=== PATIENT | female | born 1995 | race Caucasian/White ===

== ENCOUNTER → 2021-11-21 16:00 | Outpatient (CLI) | payer BC, SELFPAY ==
[2021-11-21 19:01] LABS: Basophils # 0.2 K/mm3 (0-0.2); Eosinophils # 0.3 K/mm3 (0.0-0.4); Hematocrit 41.4 % (37.0-47.0); Hemoglobin 14.1 g/dL (12.2-16.2); Lymphocytes # 2.3 K/mm3 (0.7-4.5); Lymphocytes % 25.6 % (10-50); Mean Corpuscular HGB Conc 34.1 g/dL (31.8-35.4); Mean Corpuscular Hemoglobin 29.6 pg (27.0-31.2); Mean Corpuscular Volume 86.9 fl (81-99); Mean Platelet Volume 8.7 fl (7.4-10.4); Monocytes # 0.6 K/mm3 (0.1-1.0); Monocytes % 6.7 % (1.7-9.3); Neutrophils # 5.5 K/mm3 (1.8-7.8); Neutrophils % 62.8 % (37.0-80.0); Platelet Count 336 K/mm3 (142-424); Red Blood Count 4.76 M/mm3 (4.20-5.40); Red Cell Distribution Width 13.1 % (11.5-17.5); White Blood Count 8.8 K/mm3 (4.8-10.8)
[2021-11-21 19:08] LABS: Alanine Aminotransferase 26 U/L (12-78); Albumin Level 4.5 g/dl (3.5-5.0); Albumin/Globulin Ratio 1.6 (1.1-1.8); Alkaline Phosphatase 84 U/L (38-126); Anion Gap 12.1 mEq/L (5-15); Aspartate Amino Transferase 30 U/L (14-36); Bilirubin,Total 0.9 mg/dl (0.2-1.3); Blood Urea Nitrogen 11 mg/dl (7-17); Calcium 9.4 mg/dl (8.4-10.2); Carbon Dioxide 25 mmol/L (22.0-30.0); Chloride 104 mmol/L (98-107); Cholesterol 173 mg/dl (140-200); Estimated Glomerular Filt Rate 101 ml/min (>60); GFR (African American) 122 ML/MIN (>60); Globulin 2.8 g/dL (1.3-3.2); Glucose 95 mg/dl (74-100); HDL Cholesterol 58 mg/dl (40-60); Potassium 4.1 mmoL/L (3.5-5.1); Sodium 137 mmol/L (136-145); Total Protein,Serum 7.3 g/dl (6.3-8.2); Triglycerides 66 mg/dl (30-150); VLDL Cholesterol 13 mg/dL (0-40)
[2021-11-21 19:19] LABS: Direct LDL Cholesterol 81.01 mg/dL (100-129)
[2021-11-21 19:24] LABS: 25-OH Vitamin D, Total 27.9 ng/mL (30-100)
[2021-11-21 19:39] LABS: Thyroid Stimulating Hormone 5.66 uIU/mL (0.465-4.68)
== END ==
PROVIDERS: Visit Provider Physician Assistant
DX: Z76.89 Persons encountering health services in other specified circumstances (principal); E55.9 Vitamin D deficiency, unspecified; R94.6 Abnormal results of thyroid function studies
CPT/HCPCS: 80053; 80061; 82306; 84443; 85025

== ENCOUNTER → 2022-08-16 13:30 | Outpatient (CLI) | payer BC, SELFPAY ==
[2022-08-16 19:03] LABS: Basophils # 0.1 K/mm3 (0-0.2); Basophils % 0.8 % (0.1-2.0); Eosinophils # 0.3 K/mm3 (0.0-0.4); Eosinophils % 4.1 % (0.1-12.0); Hematocrit 43.4 % (37.0-47.0); Hemoglobin 14.2 g/dL (12.2-16.2); Lymphocytes # 1.8 K/mm3 (0.7-4.5); Lymphocytes % 24.5 % (10-50); Mean Corpuscular HGB Conc 32.8 g/dL (31.8-35.4); Mean Corpuscular Hemoglobin 28.3 pg (27.0-31.2); Mean Corpuscular Volume 86.3 fl (81-99); Mean Platelet Volume 8.2 fl (7.4-10.4); Monocytes # 0.4 K/mm3 (0.1-1.0); Monocytes % 5.4 % (1.7-9.3); Neutrophils # 4.8 K/mm3 (1.8-7.8); Neutrophils % 65.2 % (37.0-80.0); Platelet Count 344 K/mm3 (142-424); Red Blood Count 5.03 M/mm3 (4.20-5.40); Red Cell Distribution Width 13.3 % (11.5-17.5); White Blood Count 7.3 K/mm3 (4.8-10.8)
[2022-08-16 19:17] LABS: Alanine Aminotransferase 31 U/L (12-78); Albumin Level 4.6 g/dl (3.5-5.0); Albumin/Globulin Ratio 1.6 (1.1-1.8); Alkaline Phosphatase 74 U/L (38-126); Anion Gap 11.1 mEq/L (5-15); Aspartate Amino Transferase 29 U/L (14-36); Bilirubin,Total 1.1 mg/dl (0.2-1.3); Blood Urea Nitrogen 11 mg/dl (7-17); Calcium 8.9 mg/dl (8.4-10.2); Carbon Dioxide 23 mmol/L (22.0-30.0); Chloride 106 mmol/L (98-107); Chol/HDL Ratio 3.4 (1-3.5); Cholesterol 184 mg/dl (140-200); Estimated Glomerular Filt Rate 100 ml/min (>60); GFR (African American) 121 ML/MIN (>60); Globulin 2.9 g/dL (1.3-3.2); Glucose 82 mg/dl (74-100); HDL Cholesterol 54 mg/dl (40-60); Potassium 4.1 mmoL/L (3.5-5.1); Sodium 136 mmol/L (136-145); Total Protein,Serum 7.5 g/dl (6.3-8.2); Triglycerides 110 mg/dl (30-150); VLDL Cholesterol 22 mg/dL (0-40)
[2022-08-16 19:28] LABS: Direct LDL Cholesterol 95.29 mg/dL (100-129)
[2022-08-16 19:35] LABS: 25-OH Vitamin D, Total 13.4 ng/mL (30-100)
[2022-08-16 19:50] LABS: Thyroid Stimulating Hormone 4.05 uIU/mL (0.465-4.68)
[2022-08-16 20:09] LABS: Vitamin B12 385 pg/mL (239-931)
== END ==
PROVIDERS: PCP Physician Assistant; Visit Provider Physician Assistant
DX: E03.9 Hypothyroidism, unspecified (principal); E55.9 Vitamin D deficiency, unspecified
CPT/HCPCS: 80053; 80061; 82306; 82607; 84443; 85025

== ENCOUNTER → 2023-02-14 23:45 | Outpatient (CLI) | payer BC, SELFPAY ==
[2023-02-14 18:05] LABS: Basophils % 0.4 % (0.1-2.0); Eosinophils # 0.2 K/mm3 (0.0-0.4); Eosinophils % 2.1 % (0.1-12.0); Hematocrit 41.4 % (37.0-47.0); Hemoglobin 13.6 g/dL (12.2-16.2); Lymphocytes % 21.1 % (10-50); Mean Corpuscular HGB Conc 32.8 g/dL (31.8-35.4); Mean Corpuscular Volume 82.2 fl (81-99); Mean Platelet Volume 8.7 fl (7.4-10.4); Monocytes # 0.5 K/mm3 (0.1-1.0); Monocytes % 5.4 % (1.7-9.3); Neutrophils # 6.9 K/mm3 (1.8-7.8); Neutrophils % 70.9 % (37.0-80.0); Platelet Count 392 K/mm3 (142-424); Red Blood Count 5.04 M/mm3 (4.20-5.40); Red Cell Distribution Width 13.7 % (11.5-17.5); White Blood Count 9.7 K/mm3 (4.8-10.8)
[2023-02-14 18:11] LABS: Alanine Aminotransferase 43 U/L (12-78); Albumin/Globulin Ratio 1.7 (1.1-1.8); Alkaline Phosphatase 108 U/L (38-126); Aspartate Amino Transferase 32 U/L (14-36); Bilirubin,Total 0.8 mg/dl (0.2-1.3); Blood Urea Nitrogen 10 mg/dl (7-17); Calcium 9.5 mg/dl (8.4-10.2); Carbon Dioxide 24 mmol/L (22.0-30.0); Chloride 105 mmol/L (98-107); Chol/HDL Ratio 4.9 (1-3.5); Cholesterol 214 mg/dl (140-200); Estimated Glomerular Filt Rate 100 ml/min (>60); GFR (African American) 121 ML/MIN (>60); Globulin 2.9 g/dL (1.3-3.2); Glucose 98 mg/dl (74-100); HDL Cholesterol 44 mg/dl (40-60); Sodium 140 mmol/L (136-145); Total Protein,Serum 7.9 g/dl (6.3-8.2); Triglycerides 125 mg/dl (30-150); VLDL Cholesterol 25 mg/dL (0-40)
[2023-02-14 18:22] LABS: Direct LDL Cholesterol 120.03 mg/dL (100-129)
[2023-02-14 18:28] LABS: 25-OH Vitamin D, Total 25.7 ng/mL (30-100); Free Thyroxine Index 3.9 ug/dL (5.93-13.13); T4 (Thyroxine) 11.9 ug/dl (5.53-11.0); Triiodothryronine (T3) Uptake 33 % (23.5-40.5)
[2023-02-14 18:36] LABS: Erythrocyte Sedimentation Rate 17 mm/hr (0-20)
[2023-02-14 18:41] LABS: Thyroid Stimulating Hormone 2.08 uIU/mL (0.465-4.68)
[2023-02-16 08:19] LABS: Thyroid Peroxidase Antibodies 11 IU/mL (0-34)
[2023-02-16 14:12] LABS: Deamidated Gliadin Abs, IgA 6 units (0-19); Deamidated Gliadin Abs, IgG 3 units (0-19); Tissue Transglutaminase IgA Ab <2 U/mL (0-3); Tissue Transglutaminase IgG Ab 4 U/mL (0-5)
[2023-02-17 10:12] LABS: Thyroid Stimulating Immunoglob <0.10 IU/L (0.00-0.55)
[2023-02-18 15:09] LABS: Endomysial IgA Antibody Negative (Negative)
[2023-02-19 23:08] LABS: F001-IgE Egg White <0.10 kU/L (Class 0); F002-IgE Milk <0.10 kU/L (Class 0); F003-IgE Codfish <0.10 kU/L (Class 0); F004-IgE Wheat <0.10 kU/L (Class 0); F010-IgE Sesame Seed <0.10 kU/L (Class 0); F013-IgE Peanut <0.10 kU/L (Class 0); F014-IgE Soybean <0.10 kU/L (Class 0); F024-IgE Shrimp <0.10 kU/L (Class 0); F256-IgE Walnut <0.10 kU/L (Class 0); F338-IgE Scallop <0.10 kU/L (Class 0)
[2023-02-21 09:19] LABS: Reticulin IgA Antibody Negative titer (Neg:<1:2.5)
== END ==
PROVIDERS: PCP Physician Assistant; Visit Provider Physician Assistant
DX: E03.9 Hypothyroidism, unspecified (principal); R13.10 Dysphagia, unspecified
CPT/HCPCS: 80053; 80061; 82306; 83516; 84436; 84443; 84445; 84479; 85025; 85651; 86003; 86008; 86140; 86255; 86256; 86376

== ENCOUNTER → 2023-03-08 15:13 | Outpatient (CLI) | payer BC, SELFPAY ==
--- NOTE | 2023-03-08 15:23 | US_ITS ---
FINAL REPORT TECHNIQUE: Limited sonographic images of the thyroid were obtained. CLINICAL HISTORY: [employer] FINDINGS: The right lobe of the thyroid measures 5.5 x 1.8 x 1.8 cm. The left lobe of the thyroid measures 5.3 x 1.5 x 1.8 cm. The isthmus measures 0.34 cm. There are 2 nodules bilaterally that are mixed cystic and solid consistent with TI-RADS category 3. IMPRESSION: Bilateral thyroid nodules consistent with TI-RADS category 3. No follow-up is required. Reviewed, Interpreted and Dictated by Luis Perez MD Transcribed by Jessi Spangler Authenticated and [facility]
== END ==
PROVIDERS: PCP Physician Assistant; Visit Provider Physician Assistant
DX: E06.3 Autoimmune thyroiditis (principal); Z86.39 Personal history of other endocrine, nutritional and metabolic disease
CPT/HCPCS: 76536

== ENCOUNTER → 2023-04-17 08:04 | Outpatient (CLI) | payer BC, SELFPAY ==
--- NOTE | 2023-04-17 08:04 | FL_ITS ---
FINAL REPORT CLINICAL HISTORY: dysphagia ft- 1:47 DAP-4789.91 FINDINGS: UPPER GI WITH SBFT UPPER GI EXAM HISTORY: Abdominal pain, nausea. PROCEDURE: The patient ingested barium. Effervescent crystals were also administered. Spot and overhead films were obtained. FINDINGS: The esophagus is normal. There is a small, sliding-type hiatal hernia. There is mild gastroesophageal reflux. Peristalsis is normal. The rugal fold pattern of the stomach is normal. The duodenal bulb is normal. There are prominent duodenal folds suggestive of duodenitis. Fluoroscopy time: 1 minute 47 seconds Radiation exposure DAP: 4789.91 IMPRESSION: Normal upper GI. SBFT: The wheel aligner film is normal. There is no evidence of obstruction. The mucosal fold pattern is normal. The terminal ilium is normal. IMPRESSION: 1. Small sliding type hiatal hernia with mild gastroesophageal reflux. 2. Prominent duodenal folds suggestive of duodenitis. 3. No evidence of bowel obstruction. Films reviewed , interpreted and dictated by Dr. Still Transcribed by Chip Jasso PA-C. Reviewed, Interpreted and Dictated by Enmanuel Still III, MD Transcribed by DERRICK Stein Authenticated and [facility]
== END ==
LOC: RAD 08:04
PROVIDERS: PCP Physician Assistant; Visit Provider Surgery
DX: R13.10 Dysphagia, unspecified (principal)
CPT/HCPCS: 74246; 74248

== ENCOUNTER → 2023-05-13 08:44 | Outpatient (CLI) | payer BC, SELFPAY ==
[2023-05-13 21:12] LABS: Chloride 105 mmol/L (98-107); Sodium 138 mmol/L (136-145)
[2023-05-13 21:14] LABS: Blood Urea Nitrogen 9 mg/dl (7-17)
[2023-05-13 21:15] LABS: Alanine Aminotransferase 35 U/L (12-78); Albumin Level 4.4 g/dl (3.5-5.0); Albumin/Globulin Ratio 1.6 (1.1-1.8); Alkaline Phosphatase 87 U/L (38-126); Aspartate Amino Transferase 31 U/L (14-36); Bilirubin,Total 0.5 mg/dl (0.2-1.3); Calcium 8.8 mg/dl (8.4-10.2); Carbon Dioxide 25 mmol/L (22.0-30.0); Cholesterol 176 mg/dl (140-200); Estimated Glomerular Filt Rate 100 ml/min (>60); GFR (African American) 121 ML/MIN (>60); Globulin 2.8 g/dL (1.3-3.2); Glucose 99 mg/dl (74-100); Iron 37 ug/dL (37-170); Total Protein,Serum 7.2 g/dl (6.3-8.2); Triglycerides 88 mg/dl (30-150); VLDL Cholesterol 18 mg/dL (0-40)
[2023-05-13 21:16] LABS: Chol/HDL Ratio 3.8 (1-3.5); HDL Cholesterol 46 mg/dl (40-60)
[2023-05-13 21:25] LABS: Total Iron Binding Capacity 346 ug/dL (265-497)
[2023-05-13 21:30] LABS: 25-OH Vitamin D, Total 28.6 ng/mL (30-100)
[2023-05-13 21:32] LABS: Direct LDL Cholesterol 102.39 mg/dL (100-129)
[2023-05-13 21:37] LABS: Basophils # 0.1 K/mm3 (0-0.2); Basophils % 0.6 % (0.1-2.0); Eosinophils # 0.4 K/mm3 (0.0-0.4); Eosinophils % 4.6 % (0.1-12.0); Hematocrit 42.3 % (37.0-47.0); Hemoglobin 14.6 g/dL (12.2-16.2); Lymphocytes # 2.9 K/mm3 (0.7-4.5); Mean Corpuscular HGB Conc 34.5 g/dL (31.8-35.4); Mean Corpuscular Hemoglobin 29.9 pg (27.0-31.2); Mean Corpuscular Volume 86.7 fl (81-99); Mean Platelet Volume 9.7 fl (7.4-10.4); Monocytes # 0.6 K/mm3 (0.1-1.0); Monocytes % 6.3 % (1.7-9.3); Neutrophils # 5.1 K/mm3 (1.8-7.8); Neutrophils % 56.4 % (37.0-80.0); Platelet Count 339 K/mm3 (142-424); Red Blood Count 4.87 M/mm3 (4.20-5.40); Red Cell Distribution Width 13.3 % (11.5-17.5)
[2023-05-13 21:38] LABS: Free Thyroxine Index 3.5 ug/dL (5.93-13.13); T4 (Thyroxine) 10.2 ug/dl (5.53-11.0); Triiodothryronine (T3) Uptake 34 % (23.5-40.5)
[2023-05-13 21:51] LABS: Thyroid Stimulating Hormone 2.83 uIU/mL (0.465-4.68)
[2023-05-13 22:07] LABS: Vitamin B12 366 pg/mL (239-931)
[2023-05-15 11:04] LABS: Progesterone 4.3 ng/mL (.); Testosterone,Total 14 ng/dL (13-71)
[2023-05-18 00:09] LABS: Estrogen 169 pg/mL (.)
[2023-05-19 12:28] LABS: Anti Mullerian Hormone (AMH) 2.51
== END ==
PROVIDERS: PCP Physician Assistant; Visit Provider Physician Assistant
DX: E03.9 Hypothyroidism, unspecified (principal); L73.2 Hidradenitis suppurativa; R53.83 Other fatigue; K58.2 Mixed irritable bowel syndrome; E55.9 Vitamin D deficiency, unspecified; E61.1 Iron deficiency
CPT/HCPCS: 80053; 80061; 82306; 82397; 82607; 82672; 83540; 83550; 84144; 84403; 84436; 84443; 84479; 85025

== ENCOUNTER 2023-06-14 13:29 | Day surgery (SDC) | payer BC, SELFPAY ==
[2023-06-14 13:37] VITALS: BMI 43.5
[2023-06-14 13:49] VITALS: BP 176/73; PULSE 78; RESP 18; TEMP 36.9; O2SAT 99
[2023-06-14 13:52] LABS: Urine Pregnancy, HCG Qual. Negative (Negative)
--- NOTE | 2023-06-14 14:31 | HMH.SCOPE ---
Procedure: Date: 06/14/23 Patient Date of :: 1995 Procedure Performed:: Esophagogastroduodenoscopy with biopsies Indications:: Patient is a 28-year-old female with history of anxiety, depression, irritable bowel syndrome referred by Iram Jo for upper endoscopy. Patient states that in September of this year she had the sensation that she had a lump in her throat somewhat to the left side. She does have symptoms of dysphagia. She was eating and when she swallowed she felt like something was stuck in her throat which persisted for 24 hours before she was seen and evaluated in the emergency department in [place] Apparently recommendations were for possible endoscopy as an outpatient. She does describe symptoms of acid reflux, indigestion, belching and burping. She has been diagnosed with apparently Leah's thyroiditis. She has some dysphagia type symptoms for seems to be worse with crunchy hard food. She did have a thyroid ultrasound performed. I felt it may be reasonable to proceed with upper endoscopy with biopsies and possible dilatation. I did however explain to her that if she has any issue in the cervical esophagus or pharynx that this may require evaluation with ENT. I ordered an upper GI series prior to her scheduled upper endoscopy. This revealed findings of normal upper GI. However, impression revealed a small sliding-type hiatal hernia with mild GERD and prominent duodenal folds suggestive of duodenitis. Performing Provider:: Enmanuel Baker MD Referring Provider:: Iram Jo Sedation:: MAC sedation Procedure:: Patient history was obtained and appropriate physical examination was performed. Patient's medications and allergies were reviewed. Informed consent was obtained after explaining the benefits, alternatives, and risks of the procedure including, but not limited to, bleeding, perforation, missed lesions, and adverse reaction to anesthesia medications. Patient was transported to endoscopy procedure room. Patient was connected to monitoring devices. Throughout the procedure the patient's blood pressure, pulse, and oxygen saturations were monitored continuously. Patient identification and planned procedure were verified by the staff. Patient was positioned in lateral decubitus position. Olympus endoscope was inserted via the oropharynx. Esophagus was cannulated. There appeared to be some minor narrowing and cricopharyngeal spasm at about 15 cm. Esophagus was traversed and the gastroesophageal junction was encountered. Stomach was cannulated and insufflated. Retroflexion revealed tiny hiatal hernia. There is some diffuse nonerosive gastropathy. There was a single probable fundic gland polyp. Pylorus was traversed. Duodenal bulb and duodenal sweep appeared relatively unremarkable. However given the findings on upper GI several biopsies were obtained within the duodenal bulb. Gastric biopsies obtained for H. pylori assessment. Several biopsies were obtained at the gastroesophageal junction. Distal esophageal biopsies were obtained. There was noted to be some apparent intermittent spasms of the distal esophagus. There was no stricture however which would be amenable to dilatation. Findings:: Probable cricopharyngeal spasm Distal esophageal spasm Tiny hiatal hernia Mild diffuse nonerosive gastropathy Probable gastric fundic gland polyp Recommendations:: Continue pantoprazole for now. Tailor medical therapy based on biopsies. If she has continued symptoms of cervical dysphagia may need ENT assessment of this. Complications:: None immediately apparent Estimated blood obtained (mL): 2 Colonoscopy Component Colonoscopy Component Was a colonoscopy performed during today's procedure?: No
[2023-06-14 14:48] VITALS: O2SAT 100
[2023-06-14 15:04] VITALS: BP 123/62; PULSE 83; RESP 16; TEMP 36.6; O2SAT 97
[2023-06-14 15:14] VITALS: BP 128/65; PULSE 81; RESP 16; O2SAT 97
[2023-06-14 15:24] VITALS: BP 141/70; PULSE 86; RESP 16; O2SAT 98
--- NOTE | 2023-06-14 15:26 | EXP.ANES.CKL ---
[facility] Disclaimer: The information contained in this section may have been updated after the patient was seen, as this information can be updated by other users. Medical History (Updated 06/14/23 @ 13:46 by Kuldip Wakefield RN) Anxiety Body mass index (BMI) of 40.1 to 44.9 in adult GERD (gastroesophageal reflux disease) Leah's thyroiditis Social anxiety disorder Surgical History History of tonsillectomy History of wisdom tooth extraction Family History (Updated 06/14/23 @ 13:48 by Kuldip Wakefield RN) Other Family history of diabetes mellitus Family history of heart disease Social History (Updated 06/14/23 @ 13:49 by Kuldip Wakefield RN) Smoking Status: Never smoker alcohol intake: never substance use type: denies use current occupational status: employed Travel in the last 8 weeks: None [facility] Anesthesia Checklist Patient Identification Patient Identification: Arm Band and Family Structural Data Admitted From: Home Planned Operative Procedure/s: EGD Consent for Planned Operative Procedure(s) Verified: Yes Verified Documents: Surgical Consent NPO Status Verified Time NPO: 00:00 Additional verifications Patient : No Anesthesia Reactions: No Hx Blood Transfusions: No Blood Transfusion Reaction: No Cephalosporin Allergy: No Previous Colonoscopy: No Airway Assessment Mallampati Score:: Class II C-Spine Mobility Assessed: Yes TMJ Mobility Assessed: Yes Dentition: Good Dentition Neurological Assessment Level of Consciousness: Awake, Alert, Appropriate and Follows Commands Hx Seizures: No Numbness or tingling in extremities: No Anesthesia Plan Anesthesia Risk discussed: Yes ASA Class: II Anesthesia Type: MAC
== END 2023-06-14 15:30 | disposition home or self-care (01) ==
PROVIDERS: PCP Physician Assistant; Visit Provider Surgery
PROC: 0DJ08ZZ Inspection of Upper Intestinal Tract, Via Natural or Artificial Opening Endoscopic (ICD-10-PCS; CPT 43235; principal; 2023-06-14 14:00)
DX: K22.4 Dyskinesia of esophagus (principal); K44.9 Diaphragmatic hernia without obstruction or gangrene; K31.7 Polyp of stomach and duodenum; K21.00 Gastro-esophageal reflux disease with esophagitis, without bleeding; E06.3 Autoimmune thyroiditis
CPT/HCPCS: 43239; 81025